=== PATIENT | female | born 1950 | race Caucasian/White ===

== ENCOUNTER 2016-06-09 05:00 | Inpatient (IN) | payer OTHER, BC ==
[~2016-06-09] VITALS: Ht 170.2 cm; Wt 76.6 kg
[2016-06-09] VITALS (7 sets, daily range): BP systolic 122–175; BP diastolic 50–88
[~2016-06-09 05:00] MED LIST: ACTOS15 MG PO; CRESTOR20 MG PO; FENOFIBRATE130 MG PO; FLEXERIL10 MG PO; IRON325 M1 PO; LISINOPRIL-HCT1 EAC3 PO; LYRICA75 MG PO; METFORMIN HCL1000 MG PO; MICRONASE1.25 MG PO; PRILOSEC20 MG PO; TOPROL XL50 MG PO; TRAMADOL HCL50 MG PO; ZESTRIL20 MG PO
[2016-06-09] MEDS ORDERED: NORVASC5 MG PO (05:49)
[2016-06-09 06:33] LABS: POINT-OF-CARE METER ID UU14174212
[2016-06-09 12:17] LABS: POINT-OF-CARE METER ID UU14149397
[2016-06-09 16:53] LABS: POINT-OF-CARE METER ID UU14149397
[2016-06-09 22:08] LABS: POINT-OF-CARE METER ID UU13113717
[2016-06-10 04:20] VITALS: BP 128/78
[2016-06-10 05:26] LABS: HEMATOCRIT 33.1 % (36.0-46.0)
[2016-06-10 05:55] LABS: ANION GAP 7 MEQ/L (2-14); CHLORIDE 104 MEQ/L (99-109); GFR ESTIMATE (CALCULATED) > 59 mL/min/; GLUCOSE 88 mg/dL (70-99); POTASSIUM 3.3 MEQ/L (3.7-5.4); SAMPLE HEMOLYSIS CHECK 0; SAMPLE ICTERIC CHECK 0; SAMPLE LIPEMIA CHECK 0; SODIUM 141 MEQ/L (136-147); UREA NITROGEN (BUN) 13 mg/dL (9-23)
[2016-06-10 07:59] VITALS: BP 126/58
[2016-06-10 11:52] LABS: POINT-OF-CARE METER ID UU13113717
[2016-06-10 12:36] LABS: POINT-OF-CARE METER ID UU13113717
[2016-06-10 14:00] VITALS: BP 137/73
[2016-06-10 16:54] LABS: POINT-OF-CARE METER ID UU13113717
[2016-06-10 21:47] LABS: POINT-OF-CARE METER ID UU14149397
[2016-06-11 00:11] VITALS: BP 132/72
[2016-06-11 05:25] LABS: HEMATOCRIT 32.5 % (36.0-46.0); MCV 91.5 FL (83-99)
[2016-06-11 08:11] VITALS: BP 137/70
[2016-06-11 12:10] LABS: POINT-OF-CARE METER ID UU13113717
[2016-06-11 16:26] VITALS: BP 159/86
[2016-06-11 16:36] LABS: POINT-OF-CARE METER ID UU14149397
[2016-06-11 22:06] LABS: POINT-OF-CARE METER ID UU14149397
[2016-06-11 23:58] VITALS: BP 163/77
[2016-06-12 08:30] VITALS: BP 132/80
[2016-06-12 12:04] LABS: POINT-OF-CARE METER ID UU13113717
== END 2016-06-12 12:57 | DRG 468 ==
LOC: 2SOUTH 05:00 → 3EAST 05:27 → 2SOUTH 05:27 → 3EAST 11:17 → 2SOUTH 14:47 → 3EAST 06-12 12:57
PROVIDERS: Orthopaedic Surgery
DX: T84.069 Wear of articular bearing surface of unspecified internal prosthetic joint (principal); Z96.653 Presence of artificial knee joint, bilateral; E78.5 Hyperlipidemia, unspecified; E78.1 Pure hyperglyceridemia; E11.9 Type 2 diabetes mellitus without complications; J44.9 Chronic obstructive pulmonary disease, unspecified; I10 Essential (primary) hypertension; R00.0 Tachycardia, unspecified; R00.1 Bradycardia, unspecified; F17.210 Nicotine dependence, cigarettes, uncomplicated
CPT/HCPCS: 80048; 82948; 85014; 85018; 87070; 87075; 87205; C1713; J0131; J0690; J1170; J1815; J1885; J2250; J2405; J2795; J3010; J7030; J7120

== ENCOUNTER 2017-06-07 21:37 | Inpatient (IN) | payer OTHER, BC ==
[~2017-06-07] VITALS: Ht 170.2 cm; Wt 84.9 kg
[~2017-06-07 21:37] MED LIST changes: +ANTARA30 MG PO; +ASPIRIN81 M2 PO; +BEVESPI AEROS10.7 GM IH; +EFFEXOR XR150 MG PO; +FEOSOL325 MG PO; +GLUCOPHAGE1000 MG PO; -METFORMIN HCL1000 MG PO; +MICROZIDE12.5 M1 PO; +NORVASC5 MG PO; +SYMBICORT60 INHALAT IH; +TOPROL XL25 MG PO; -TOPROL XL50 MG PO; +ULTRAM ER100 MG PO
[2017-06-08 10:23] VITALS: BP 162/91
[2017-06-08 17:03] LABS: TROP-I INTERPRETATION NEGATIVE; TROPONIN-I < 0.01 ng/mL (0.0-0.30)
[2017-06-08 18:18] VITALS: BP 145/71
[2017-06-08 19:32] VITALS: BP 117/61
[2017-06-08 22:31] LABS: TROP-I INTERPRETATION NEGATIVE; TROPONIN-I < 0.01 ng/mL (0.0-0.30)
[2017-06-08 23:36] VITALS: BP 111/69
[2017-06-09 03:02] VITALS: BP 119/69
[2017-06-09 06:41] LABS: HEMATOCRIT 33.6 % (36.0-46.0); HEMOGLOBIN 10.8 G/DL (11.9-15.5); MCV 94.4 FL (83-99)
[2017-06-09 06:53] LABS: TROP-I INTERPRETATION NEGATIVE; TROPONIN-I < 0.01 ng/mL (0.0-0.30)
[2017-06-09 07:04] LABS: CHLORIDE 105 MEQ/L (99-109); CREATININE 0.8 MG/DL (0.6-1.3); GFR ESTIMATE (CALCULATED) > 59 mL/min/; POTASSIUM 3.4 MEQ/L (3.7-5.4); SODIUM 142 MEQ/L (136-147); UREA NITROGEN (BUN) 10 mg/dL (9-23)
[2017-06-09 07:20] LABS: GLUCOSE 89 mg/dL (70-99)
[2017-06-09 07:30] VITALS: BP 108/66
[2017-06-09] MEDS ORDERED: ELIQUIS2.5 MG PO (07:43)
[2017-06-09] MEDS ORDERED: OXYCODONE HCL5 MG PO (07:43)
[2017-06-09 11:45] VITALS: BP 130/71
[2017-06-09 16:08] VITALS: BP 132/63
[2017-06-09 19:52] VITALS: BP 126/69
[2017-06-09 23:53] VITALS: BP 132/77
[2017-06-10 06:21] LABS: HEMATOCRIT 32.1 % (36.0-46.0); HEMOGLOBIN 10.4 G/DL (11.9-15.5); MCV 94.4 FL (83-99)
[2017-06-10 06:47] LABS: CHLORIDE 103 MEQ/L (99-109); CREATININE 0.7 MG/DL (0.6-1.3); GFR ESTIMATE (CALCULATED) > 59 mL/min/; GLUCOSE 90 mg/dL (70-99); POTASSIUM 3.6 MEQ/L (3.7-5.4); SODIUM 138 MEQ/L (136-147); UREA NITROGEN (BUN) 10 mg/dL (9-23)
[2017-06-10 07:48] VITALS: BP 137/75
[2017-06-10 12:13] VITALS: BP 133/76
== END 2017-06-10 14:56 | disposition home or self-care (01) | DRG 465 ==
LOC: ENRESERV 21:37 → 3EAST 06-08 09:44 → 2SOUTH 06-08 09:44 → ENRESERV 06-08 15:05 → 3EAST 06-08 18:02
PROVIDERS: Anesthesiology; Internal Medicine Cardiovascular Disease; Orthopaedic Surgery
DX: T84.84XA Pain due to internal orthopedic prosthetic devices, implants and grafts, initial encounter (principal); Y83.1 Surgical operation with implant of artificial internal device as the cause of abnormal reaction of the patient, or of later complication, without mention of misadventure at the time of the procedure; F17.200 Nicotine dependence, unspecified, uncomplicated; I10 Essential (primary) hypertension; E11.9 Type 2 diabetes mellitus without complications; E87.6 Hypokalemia; E78.5 Hyperlipidemia, unspecified; Z96.653 Presence of artificial knee joint, bilateral; Z90.49 Acquired absence of other specified parts of digestive tract; R07.9 Chest pain, unspecified; Z79.01 Long term (current) use of anticoagulants; Z80.9 Family history of malignant neoplasm, unspecified; Z90.710 Acquired absence of both cervix and uterus; Z82.5 Family history of asthma and other chronic lower respiratory diseases
CPT/HCPCS: 36415; 80048; 80053; 82948; 84484; 85014; 85018; 87070; 87075; 87116; 87205; 87206; 93005; 94010; 94640; 94640 76; 97530 GO; J0131; J0690; J1170; J1815; J1885; J2250; J2405; J2795; J7030; J7050; Q0175